=== PATIENT | male | born 1980 | race Two or more races ===

== ENCOUNTER → 2017-12-17 | Outpatient (CLI) | payer OTHER ==
[~2017-12-17] MED LIST: FENTANYL CITRATE 100 MCG/2 ML AMPUL ONE; MIDAZOLAM HCL 2 MG/2 ML VIAL ONE; ROCURONIUM BROMIDE 50 MG/5 ML VIAL ONE
[2017-12-17 11:53] LABS: CREATININE 0.9 mg/dL (0.6-1.3); POTASSIUM 3.8 mmol/L (3.5-5.1)
[2017-12-17 11:58] LABS: *BILIRUBIN,URIN NEGATIVE (NEGATIVE); *BLOOD, URINE NEGATIVE (NEGATIVE); *COLOR,URINE YELLOW (YELLOW); *KETONES,URINE NEGATIVE (NEGATIVE); *PROTEIN,URINE NEGATIVE (NEGATIVE); *UROBILINOGEN,URINE 0.2 E.U./dl (NORMAL); LEUKOCYTE ESTERASE ,URINE NEGATIVE (NEGATIVE); NITRITE, URINE NEGATIVE (NEGATIVE); UGLUCOSE NEGATIVE (NEGATIVE)
[2017-12-17 11:59] LABS: BASOPHILS % (AUTO) 0.9 % (0.0-2.0); BILIRUBIN,TOTAL 0.6 mg/dL (0.2-1.0); EOSINOPHILS # (AUTO) 0.1 K/uL (0.0-0.7); EOSINOPHILS % (AUTO) 2.1 % (0.0-7.0); HEMATOCRIT 43.3 % (36.7-47.1); LYMPHOCYTES # (AUTO) 1.4 K/uL (20.0-40.0); LYMPHOCYTES % (AUTO) 27.6 % (20.5-51.5); MEAN CORPUSCULAR HEMOGLOBIN 31.3 uug (23.8-33.4); MEAN CORPUSCULAR HGB CONC 35 g/dL (32.5-36.3); MONOCYTES # (AUTO) 0.6 K/uL (2.0-10.0); MONOCYTES % (AUTO) 12.8 % (0.0-11.0); NEUTROPHILS # (AUTO) 2.8 K/uL (1.8-8.9); NEUTROPHILS % (AUTO) 56.6 % (38.5-71.5); PLATELET COUNT (AUTO) 241 K/uL (152-348); TOTAL PROTEIN, SERUM 7.6 g/dL (6.4-8.2)
[2017-12-17 12:06] LABS: *CLARITY,URINE HAZY (CLEAR)
[2017-12-17 12:07] LABS: BACTERIA,URINE NONE SEEN /HPF (NONE SEEN); MUCUS,URINE MANY /LPF (0-FEW); RBC,URINE 0-3 /HPF (0-3); SQUAMOUS EPITHELIAL CELL,UR FEW /HPF (NONE SEEN); WBC,URINE 0-3 /HPF (0-3)
== END | disposition home or self-care (01) ==
LOC: LAB 11:08
PROVIDERS: ATTEND Orthopaedic Surgery
DX: Z01.818 Encounter for other preprocedural examination (principal)
CPT/HCPCS: 36415; 85025; 85730

== ENCOUNTER 2017-12-20 06:35 | Day surgery (SDC) | payer OTHER ==
[2017-12-20] MEDS ORDERED: IV LACTATED RINGERS SOLUTION 1,000 ML BAG IV ONE (06:36)
[2017-12-20] MEDS ORDERED: CEFAZOLIN 1 G VIAL MC ONE (06:36)
[2017-12-20] MEDS ORDERED: SEVOFLURANE 250 ML BOTTLE IH ONE (06:36)
[2017-12-20] MEDS ORDERED: DEXAMETHASONE SOD PHOSPHATE 4 MG INJ IV ONE (06:36)
[2017-12-20] MEDS ORDERED: KETOROLAC TROMETHAMINE 30 MG INJ IM ONE (06:36)
[2017-12-20] MEDS ORDERED: ONDANSETRON 4 MG/2 ML VIAL IV ONE (06:36)
[2017-12-20] MEDS ORDERED: PROPOFOL 200 MG/20 ML BOTTLE IV ONE (06:36)
[2017-12-20] MEDS ORDERED: LIDOCAINE-MPF 2% 5 ML VIAL MC ONE (06:36)
[2017-12-20] MEDS ORDERED: BUPIVACAINE PF 0.5% 30 ML VIAL ONE (06:57)
[2017-12-20] MEDS ORDERED: POLYMYXIN B SULFATE 500,000 UNITS, BACITRACIN 50,000 UNITS, NORMAL SALINE 20 ML MC ONE ×3 (07:30)
[2017-12-20] MEDS ORDERED: HYDROCODONE/APAP 5-325MG TABLET ONE (10:23)
== END 2017-12-20 11:10 | disposition home or self-care (01) ==
LOC: DS 06:35
PROVIDERS: ATTEND Orthopaedic Surgery
DX: G56.02 Carpal tunnel syndrome, left upper limb (principal)
CPT/HCPCS: A4649; A4663; J0690; J1100; J1885; J2250; J2405; J3010; J3490; J7120